=== PATIENT | male | born 1965 | race Caucasian/White ===

== ENCOUNTER 2018-03-28 10:22 | Emergency (ER) | payer BC ==
[~2018-03-28] VITALS: Ht 177.8 cm; Wt 72.1 kg
--- NOTE | 2018-03-28 10:32 | NUR ---
PATIENT TO ED C/O WEAKNESSM DIZZINESS SINCE YESTERDAY. PATIENT NOT IN DISTRESS. AAO4. SKIN IS WARM TO TOUCH AND NON DIAPHORETIC. PATIENT IS AFEBRILE. VSS
--- NOTE | 2018-03-28 10:37 | NUR ---
MD DUGAN AT BEDSIDE
[2018-03-28] MEDS ORDERED: ONDANSETRON HCL/PF 4 MG/2 ML VIAL ONE (10:41)
[2018-03-28 10:51] LABS: BASOPHILS # (AUTO) 0.1 /CMM (0.0-0.2); BASOPHILS % (AUTO) 1.8 % (0.0-2.0); EOSINOPHILS % (AUTO) 4.6 % (0.0-6.0); HEMATOCRIT 46 % (39-51); LYMPHOCYTES # (AUTO) 0.9 /CMM (0.8-4.8); LYMPHOCYTES % (AUTO) 22.2 % (20.0-44.0); MEAN CORPUSCULAR HEMOGLOBIN 31 PG (26.0-33.0); MEAN CORPUSCULAR HGB CONC 32 g/dl (31.0-36.0); MEAN CORPUSCULAR VOLUME 96 fL (80-96); MONOCYTES # (AUTO) 0.3 /CMM (0.1-1.30); MONOCYTES % (AUTO) 6.2 % (2.0-12.0); NEUTROPHILS # (AUTO) 2.8 /CMM (1.8-8.9); NEUTROPHILS % (AUTO) 65.2 % (43.0-81.0); PLATELET COUNT (AUTO) 217 /CMM (150-450); RDW COEFFICIENT OF VARIATION 11.9 (11.5-15.0); RED BLOOD CELL COUNT(AUTO) 4.82 MIL/uL (4.5-6.0); WHITE BLOOD COUNT (AUTO) 4.3 K/uL (4.3-11.0)
[2018-03-28 10:58] LABS: CALCIUM, SERUM 8.7 mg/dL (8.5-10.1); CARBON DIOXIDE 27 mmol/L (21-32); CHLORIDE 105 mmol/L (98-107); CREATININE 1.2 mg/dL (0.6-1.3); GLUCOSE 97 mg/dL (74-106); POTASSIUM 4.4 mmol/L (3.5-5.1); SODIUM SERUM 137 mmol/L (136-145); UREA NITROGEN, BLOOD 13 mg/dL (7-18)
[2018-03-28] MEDS ORDERED: IV NS 0.9% 1,000 ML BAG IV ONE (11:00)
[2018-03-28] MEDS ORDERED: ONDANSETRON HCL/PF 4 MG/2 ML VIAL IVP ONE (11:00)
[2018-03-28 11:08] LABS: TROPONIN I < 0.017 ng/mL (0.00-0.056)
[2018-03-28 11:09] LABS: INR 1.13 (0.85-1.15)
[2018-03-28] MEDS ORDERED: HYDROCORTISONE SOD SUCCINATE 100 MG/2 ML VIAL ONE (11:51)
[2018-03-28 11:54] VITALS: BP 107/76
[2018-03-28] MEDS ORDERED: HYDROCORTISONE SOD SUCCINATE 100 MG/2 ML VIAL IV ONE (12:00)
--- NOTE | 2018-03-28 12:15 | NUR ---
IV removed. Catheter intact and site benign. Pressure and 4x4 applied to site. No bleeding noted.Patient discharged to home in stable condition. Written and verbal after care instructions given. Patient verbalizes understanding of instruction.
== END 2018-03-28 12:24 | disposition home or self-care (01) ==
LOC: ER 10:28
DX: R53.1 Weakness (principal); R42 Dizziness and giddiness; E27.40 Unspecified adrenocortical insufficiency
CPT/HCPCS: 36415; 71045; 80048; 84484; 85025; 85730; 93005; 96361; 96374; 96375; 99285; A4606; J1720; J2405; J7030; Z7610

== ENCOUNTER 2019-05-25 12:31 | Emergency (ER) | payer BC ==
[~2019-05-25] VITALS: Ht 177.8 cm; Wt 70.3 kg
[2019-05-25 12:54] VITALS: BP 103/71
--- NOTE | 2019-05-25 12:54 | NUR ---
PT BIBWIFE, C/O GENERALIZED WEAKNESS, HEAD PRESSURE, CONGESTION x 3 DAYS, PT IS AAOX4, NOT IN RESPIRATORY DISTRESS, HOOKED TO MONITOR, KEPT RESTED AND COMFORTABLE, WILL CONTINUE TO MONITOR.
--- NOTE | 2019-05-25 13:17 | NUR ---
ADRIÁN CORADO AT BEDSIDE FOR EVAL
--- NOTE | 2019-05-25 13:37 | NUR ---
Patient discharged to home in stable condition. Written and verbal after care instructions given. Patient verbalizes understanding of instruction.
== END 2019-05-25 13:38 | disposition home or self-care (01) ==
LOC: ER 12:31
DX: J32.9 Chronic sinusitis, unspecified (principal); J45.909 Unspecified asthma, uncomplicated; E27.40 Unspecified adrenocortical insufficiency

== ENCOUNTER 2021-01-17 05:01 | Emergency (ER) | payer BC ==
[~2021-01-17] VITALS: Ht 177.8 cm; Wt 72.6 kg
--- NOTE | 2021-01-17 05:15 | NUR ---
PATIENT C/O BILATERAL EYE PAIN, WAS CLEANING A/C UNIT IN [place] AT 3 PM, WOKE UP AT 3 AM WITH PAIN/IRRITATION. PATIENT RR EVEN AND UNLBAORED, NO SOB NOTED. PATIENT CONNECTED TO MONITOR, VSS. WILL CONTINUE TO MONITOR.
[2021-01-17] MEDS ORDERED: FLUORESCEIN SODIUM OPHTH 1 EA STRIP ONE (05:57)
[2021-01-17] MEDS ORDERED: GENT5DRO4 EACHEYE (06:09)
[2021-01-17 06:16] VITALS: BP 115/68
--- NOTE | 2021-01-17 06:16 | NUR ---
Patient discharged to home in stable condition. Written and verbal after care instructions given. Patient verbalizes understanding of instruction.
== END 2021-01-17 06:16 | disposition home or self-care (01) ==
LOC: ER 05:01
DX: H16.9 Unspecified keratitis (principal); J45.909 Unspecified asthma, uncomplicated

== ENCOUNTER 2023-01-20 23:01 | Emergency (ER) | payer BC, OTHER ==
[~2023-01-20] VITALS: Ht 177.8 cm; Wt 79.4 kg
[~2023-01-20 23:01] MED LIST: GENT5DRO4 EACHEYE
[2023-01-21 00:05] VITALS: BP 109/73; TEMP 98.2
--- NOTE | 2023-01-21 00:05 | NUR ---
BIBFRIEND FROM HOME C/O L HAND PAIN & SUTURE REMOVAL TO L 5TH FINGER. SUTURES TO L FINGER FROM 4 YRS AGO.
[2023-01-21] MEDS ORDERED: LIDOCAINE 1%-EPI 1:100,000 20 ML VIAL ONE (00:19)
[2023-01-21] MEDS ORDERED: LIDOCAINE 1%-EPI 1:100,000 20 ML VIAL TP ONE (00:30)
--- NOTE | 2023-01-21 00:55 | NUR ---
DR. ORDAZ AT BEDSIDE
--- NOTE | 2023-01-21 01:21 | NUR ---
Patient discharged to home in stable condition. Written and verbal after care instructions given. Patient verbalizes understanding of instruction.
[2023-01-27] MEDS ORDERED: ASPI-1169 PO (10:18)
[2023-01-27] MEDS ORDERED: ATOR40TA PO (10:18)
== END 2023-01-21 01:21 | disposition home or self-care (01) ==
LOC: ER 23:04
DX: S61.217A Laceration without foreign body of left little finger without damage to nail, initial encounter (principal); J45.909 Unspecified asthma, uncomplicated; Z79.899 Other long term (current) drug therapy; W26.8XXA Contact with other sharp object(s), not elsewhere classified, initial encounter; Y93.89 Activity, other specified; Y92.89 Other specified places as the place of occurrence of the external cause; Y99.8 Other external cause status
CPT/HCPCS: 12001; 99282; J3490

== ENCOUNTER 2024-07-24 19:25 | Emergency (ER) | payer OTHER ==
[~2024-07-24] VITALS: Ht 177.8 cm; Wt 81.6 kg
[~2024-07-24 19:25] MED LIST changes: +ASPI-1169 PO; +ATOR40TA PO; -GENT5DRO4 EACHEYE
[2024-07-24] MEDS ORDERED: KETOROLAC TROMETHAMINE 15 MG/ML VIAL ONE (20:24)
[2024-07-24] MEDS: KETOROLAC TROMETHAMINE 15 MG/ML VIAL IM ONE (20:27)
[2024-07-24] MEDS ORDERED: CHLO473M5 PO (21:16)
[2024-07-24] MEDS ORDERED: CYCL5TAB PO (21:16)
[2024-07-24] MEDS ORDERED: IBUP-1955 PO (21:16)
[2024-07-24 21:42] LABS: BASOPHILS # (AUTO) 0.1 K/uL (0.0-0.2); BASOPHILS % (AUTO) 0.8 % (0.0-2.0); EOSINOPHILS % (AUTO) 0.6 % (0.0-6.0); HEMATOCRIT 46 % (39-51); HEMOGLOBIN 15.7 g/dL (13.5-17.5); LYMPHOCYTES # (AUTO) 0.8 K/uL (0.8-4.8); LYMPHOCYTES % (AUTO) 10.4 % (20.0-44.0); MEAN CORPUSCULAR HEMOGLOBIN 33 PG (26.0-33.0); MEAN CORPUSCULAR HGB CONC 34 g/dl (31.0-36.0); MEAN CORPUSCULAR VOLUME 98 fL (80-96); MONOCYTES # (AUTO) 0.5 K/uL (0.1-1.30); MONOCYTES % (AUTO) 6.1 % (2.0-12.0); NEUTROPHILS # (AUTO) 6.2 K/uL (1.8-8.9); NEUTROPHILS % (AUTO) 82.1 % (43.0-81.0); PLATELET COUNT (AUTO) 160 K/uL (150-450); RED BLOOD CELL COUNT(AUTO) 4.73 MIL/uL (4.5-6.0); RED CELL DISTRIBUTION WIDTH 13.5 % (11.5-15.0); WHITE BLOOD COUNT (AUTO) 7.6 K/uL (4.3-11.0)
[2024-07-24 21:51] LABS: CALCIUM, SERUM 9.1 mg/dL (8.5-10.1); CARBON DIOXIDE 28 mmol/L (21-32); CHLORIDE 105 mmol/L (98-107); CREATININE 1.2 mg/dL (0.6-1.3); GLUCOSE 107 mg/dL (74-106); POTASSIUM 4.4 mmol/L (3.5-5.1); UREA NITROGEN, BLOOD 27 mg/dL (7-18)
[2024-07-24 22:07] LABS: SODIUM SERUM 138 mmol/L (136-145)
[2024-07-25 03:05] VITALS: BP 130/85; TEMP 98; O2SAT 98
== END 2024-07-25 03:34 | disposition home or self-care (01) ==
LOC: EDUNIT# 19:25 → ER 19:31
DX: S52.591A Other fractures of lower end of right radius, initial encounter for closed fracture (principal); S76.012A Strain of muscle, fascia and tendon of left hip, initial encounter; S76.912A Strain of unspecified muscles, fascia and tendons at thigh level, left thigh, initial encounter; S53.402A Unspecified sprain of left elbow, initial encounter; S09.90XA Unspecified injury of head, initial encounter; S00.511A Abrasion of lip, initial encounter; R79.1 Abnormal coagulation profile; M25.552 Pain in left hip; R07.89 Other chest pain; R10.32 Left lower quadrant pain; R29.818 Other symptoms and signs involving the nervous system; R60.0 Localized edema; D69.6 Thrombocytopenia, unspecified; E78.5 Hyperlipidemia, unspecified; F41.9 Anxiety disorder, unspecified; J45.909 Unspecified asthma, uncomplicated; Z79.82 Long term (current) use of aspirin; Z79.899 Other long term (current) drug therapy; Z87.19 Personal history of other diseases of the digestive system; Y04.0XXA Assault by unarmed brawl or fight, initial encounter; Y93.89 Activity, other specified; Y92.89 Other specified places as the place of occurrence of the external cause; Y99.8 Other external cause status
CPT/HCPCS: 36415; 71045-TC; 73080-TC; 73130-TC; 73502; 80048-TC; 84484-TC; 85025-TC; J1885